=== PATIENT | female | born 1950 | race Caucasian/White ===

== ENCOUNTER 2018-07-15 17:20 | Emergency (ER) | payer OTHER ==
[~2018-07-15] VITALS: Ht 154.9 cm; Wt 61.2 kg
== END 2018-07-15 18:31 | disposition home or self-care (01) ==
LOC: ER 17:20
DX: J06.9 Acute upper respiratory infection, unspecified (principal); R22.0 Localized swelling, mass and lump, head; T50.995A Adverse effect of other drugs, medicaments and biological substances, initial encounter

== ENCOUNTER 2019-01-01 07:47 | Outpatient (CLI) | payer OTHER | END 2019-01-01 09:16 | disposition home or self-care (01) | LOC: SONOGRAMA 07:47 | DX: E04.1 Nontoxic single thyroid nodule (principal) ==